=== PATIENT | female | born 1985 | race Caucasian/White ===

== ENCOUNTER 2023-10-07 22:45 | Emergency (ER) | payer BC, SELFPAY ==
--- NOTE | ~2023-10-07 | US_ITS ---
EXAMINATION: US pelvic complete w TV DATE: 10/08/2023 03:40 INDICATION: Right ovarian cyst. Low abdominal pain. TECHNIQUE: Multiple transabdominal and transvaginal sonographic images of the pelvis were obtained. COMPARISON: CT abdomen and pelvis 10/08/2023 FINDINGS: TRANSABDOMINAL ULTRASOUND: The uterus measures 9.9 x 5.0 x 5.4 cm. There is no free fluid in the pelvis. TRANSVAGINAL ULTRASOUND: The endometrial complex measures 8 mm in thickness. There are nabothian cysts in the cervix. The righ t ovary measures 11.8 x 7.3 x 10.7 cm. There is 11.8 cm cyst in right ovary. The left ovary measures 2.6 x 2.1 x 2.6 cm. There is vascular flow in the ovaries. IMPRESSION: 1. 11.8 cm cyst in right ovary, likely benign. Consider MRI or surgical evaluation. Reviewed, dictated and finalized at location A. IMPRESSION: 1. 11.8 cm cyst in right ovary, likely benign. Consider MRI or surgical evaluat ion.
--- NOTE | ~2023-10-07 | CT_ITS ---
EXAMINATION: CT abdomen pelvis w con DATE: 10/08/2023 01:13 INDICATION: Low abdominal pain. Nausea, vomiting, and diarrhea. TECHNIQUE: Computed tomography (CT) of the abdomen and pelvis was performed with 100 mL Omnipaque 350 intravenous contrast. Automated exposure control and iterative reconstruction technique were employe d. The dose-length product was 606.06 mGy-cm. COMPARISON: CT abdomen and pelvis 10/04/2018 FINDINGS: The visualized portions of the lung bases are clear without pneumonia or pleural effusion. The heart size is normal. No pericardial effusion. There are changes of gastric sleeve procedure. The re is diffuse hepatic steatosis. The gallbladder is normal. 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 The pancreas, adrenal glands, and kidneys are normal. There is a 12.5 cm cyst of the right ovary. There are changes of appendectomy. There are no pathologically enlarged lymph nodes. There is no free intraperitoneal fluid. There is mild thoracic and lumbar spondylosis. IMPRESSION: 1. 12.5 cm cyst in the right ovary, likely benign. Consider MRI or surgical evaluation. 2. 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 3. Diffuse hepatic steatosis. Reviewed, dictated and finalized at location A. IMPRESSION: 1. 12.5 cm cyst in the right ovary, likely benign. Consider MRI or surgical leona luation. 2. 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 3. Diffuse hepatic steatosis.
[2023-10-07 22:47] VITALS: BP 112/69; PULSE 104; RESP 16; TEMP 36.4; O2SAT 100
[2023-10-07 23:47] LABS: Basophils Percent Auto 0.3 % (0.2-1.2); Eosinophils Absolute Auto 0.1 K/mm3 (0-0.3); Eosinophils Percent Auto 0.4 % (0-4.4); Hematocrit 41.2 % (37.0-47.0); Hemoglobin 13.7 g/dL (12.0-15.0); Immature Granulocyte Absolute 0.03 K/mm3 (0.00-0.031); Immature Granulocyte Percent A 0.3 % (0-0.5); Lymphocytes Absolute Auto 1.91 K/mm3 (0.9-3.2); Lymphocytes Percent Auto 16.6 % (18.3-44.2); Mean Corpuscular HGB Conc 33.3 g/dl (32-36); Mean Corpuscular Volume 87.3 fl (80-100); Mean Platelet Volume 11.9 fl (7.4-10.4); Monocytes Absolute Auto 0.2 K/mm3 (0.1-0.6); Monocytes Percent Auto 1.7 % (2.6-8.5); Neutrophils Absolute Auto 9.3 K/mm3 (1.3-6.7); Neutrophils Percent Auto 80.7 % (45.5-73.1); Platelet Count Result 189 k/mm3 (150-375); Red Blood Count 4.72 M/mm3 (4.2-5.4); White Blood Count 11.5 K/mm3 (4.5-10.0)
[2023-10-08 00:02] LABS: Alanine Aminotransferase 28 U/L (6-35); Albumin Level 3.6 g/dL (3.5-5.1); Alkaline Phosphatase 61 U/L (38-126); Anion Gap 6 mmol/L (4-12); Aspartate Amino Transferase 31 U/L (14-36); Bilirubin,Total 0.5 mg/dL (0.2-1.3); Blood Urea Nitrogen 14 mg/dL (7-17); Calcium 8.8 mg/dL (8.4-10.2); Carbon Dioxide 24 mmol/L (22-30); Chloride 107 mmol/L (98-107); Estimated CRCL calculation 97 ml/min; Estimated Glomerular Filt Rate > 60; Glucose 163 mg/dL (65-110); Lipase 153 U/L (23-300); Potassium 3.2 mmol/L (3.4-5.0); Sodium 137 mmol/L (137-145)
[2023-10-08 00:09] VITALS: PULSE 92; RESP 19; O2SAT 100
[2023-10-08 00:46] LABS: Bacteria Urine 1+ /hpf; Calcium Oxalate Crystals Urine Present /hpf; Mucus Urine Present /lpf; Need Manual Microscopic Reviewed; Squamous Epithelial Cell Urine Moderate /hpf (Few); WBC Urine 21-50 /hpf (0-3)
[2023-10-08 00:48] LABS: Appearance Urine Clear (Clear); Color Urine Yellow (Yellow); Glucose Urine UA Negative (Negative); Protein Urine Trace mg/dL (Negative); Specific Grav Ur >= 1.030 (1.001-1.035); pH Urine 5.5 (5.0-9.0)
[2023-10-08 00:49] LABS: Bilirubin Urine 1+ (Negative); Blood Urine Trace-intact (Negative); Ketones Urine 2+ mg/dL (Negative); Leukocyte Esterase Ur Negative LEU/UL (Negative); Nitrate Urine Negative (Negative); Urobilinogen Urine 0.2 mg/dL (<2.0)
[2023-10-08] MEDS: ONDANSETRON INJ 4 MG/2 ML VIAL IV PUSH (00:49)
[2023-10-08] MEDS: SODIUM CHLORIDE 0.9% IV 1,000 ML 999 ML IV CONT (00:49)
[2023-10-08] MEDS: MORPHINE SULFATE (*CRX) 4 MG/ML INJ IV PUSH (00:49)
[2023-10-08 00:50] LABS: Add Urine Microscopic? YES
[2023-10-08 00:55] LABS: Magnesium 1.8 mg/dL (1.6-2.3)
--- NOTE | 2023-10-08 01:01 | ED.ABDPAIN ---
HPI - Abdominal Pain General Chief Complaint: Abdominal Pain <MARIAJOSE Dupont Last Filed: 10/08/23 02:27> Stated Complaint: abd pain, n/v after gastric sleeve 4 weeks ago <Britany Richards PA-C - Last Filed: 10/08/23 02:27> Time Seen by Provider: 10/07/23 23:41 <MARIAJOSE Dupont Last Filed: 10/08/23 02:27> Source: patient <MARIAJOSE Dupont Last Filed: 10/08/23 02:27> Mode of arrival: ambulatory <MARIAJOSE Dupont Last Filed: 10/08/23 02:27> Limitations: no limitations <MARIAJOSE Dupont Last Filed: 10/08/23 02:27> History of Present Illness HPI narrative: Patient is a 37 y/o female who presents the ED with report of abdominal pain. Patient reports she developed pain around 5:00 p.m. today diffusely throughout her abdomen. Pain was mild at 1st, but has continued to worsen. Described as a cramping pain. She does also report nausea, vomiting, a few episodes of diarrhea. She did eat a few bites of a salad prior to when symptoms began. Has not taken anything for pain. Reports chills and lightheadedness. Denies rectal bleeding, melena, fevers. Patient reports hx of gastric sleeve surgery [address] Waters with [facility]. Denies any complications r/t surgery. <Britany Richards PA-C - Last Filed: 10/08/23 02:27> Related Data Allergies/Adverse Reactions: Allergies Allergy/AdvReac Type Severity Reaction Status Date / Time codeine AdvReac Mild Nausea and Verified 10/07/23 23:18 Vomiting <MARIAJOSE Dupont Last Filed: 10/08/23 02:27> Review of Systems Review of Systems: CONSTITUTIONAL: Denies fever, chills, or sweats. GASTROINTESTINAL: see HPI. GENITOURINARY: Denies dysuria or hematuria. NEUROLOGIC: Reports lightheadedness. Denies headache, dizziness, numbness, or weakness. <Britany Richards PA-C - Last Filed: 10/08/23 02:27> All systems reviewed & are unremarkable except as noted in HPI and below <Britany Richards PA-C - Last Filed: 10/08/23 02:27> PMFSH Family History Family History: Family History Other Diabetes mellitus Family history of cardiovascular disease <Britany Richards PA-C - Last Filed: 10/08/23 02:27> Social History Social History: Social History Smoking status: Never smoker Alcohol intake: current <Britany Richards PA-C - Last Filed: 10/08/23 02:27> Exam Narrative: GENERAL: Well appearing, obese with BMI of 31.8, non-toxic, in no acute distress. HEAD: Normocephalic, atraumatic. RESPIRATORY: Airway patent, respirations nonlabored. Clear to auscultation bilaterally, no rales, rhonchi, wheezing. CARDIOVASCULAR: Borderline tachycardic with regular rhythm without murmurs, rubs, or gallops. ABDOMINAL: Soft, diffuse tenderness throughout lower abdomen, nondistended. Normoactive BS. MUSCULOSKELETAL: Moves all extremities. No gross deformities. SKIN: Warm, dry, normal color. NEURO: A&O X3. Speech clear. PSYCHIATRIC: Appropriate mood and affect. Normal interaction. <Britany Richards PA-C - Last Filed: 10/08/23 02:27> Course TECHNICAL ADJUSTER/PA Physician Supervision For this patient encounter, I reviewed the TECHNICAL ADJUSTER or PA documentation, treatment plan, and medical decision making and had [id number] time with this patient. I performed all aspects of the MDM as documented. <Grabiel Mcpherson MD - Last Filed: 10/08/23 03:58> Vital Signs Vital signs: Vital Signs Temperature 97.5 F L 10/07/23 22:47 Pulse Rate 104 H 10/07/23 22:47 Respiratory Rate 16 10/07/23 22:47 Blood Pressure 112/69 10/07/23 22:47 Pulse Oximetry 100 10/07/23 22:47 Oxygen Delivery Room Air 10/07/23 22:47 Temperature 97.5 F L 10/07/23 22:47 Pulse Rate 77 10/08/23 02:44 Respiratory Rate 20 10/08/23 02:44 Blood
[2023-10-08 01:15] VITALS: BP 125/68; PULSE 83; RESP 19; O2SAT 99
[2023-10-08 02:44] VITALS: BP 115/72; PULSE 77; RESP 20; O2SAT 97
[2023-10-08 04:03] VITALS: BP 108/59; PULSE 76; RESP 16; O2SAT 97
== END 2023-10-08 04:03 | disposition home or self-care (01) ==
PROVIDERS: Physician Assistant; Emergency Provider Emergency Medicine
DX: R10.30 Lower abdominal pain, unspecified (principal); R11.2 Nausea with vomiting, unspecified; Z98.84 Bariatric surgery status; N83.201 Unspecified ovarian cyst, right side
CPT/HCPCS: 36415; 74177; 76830; 76856; 80053; 81001; 81025; 83690; 83735; 85025; 87086; 87088; 96361; 96374; 96375; 99284; J2270; J2405; J7030; Q9967

== ENCOUNTER 2025-01-09 06:05 | Emergency (ER) | payer SELFPAY ==
[2025-01-09 06:06] VITALS: BP 131/84; PULSE 73; RESP 20; O2SAT 100
--- NOTE | 2025-01-09 06:15 | PC.NURSE ---
PT MOANING IN PAIN. AWAITING ROOM ASSIGNMENT. CHARGE NURSE AWARE.
--- NOTE | 2025-01-09 06:45 | PC.NURSE ---
PT STILL MOANING IN PAIN. AWAITING ROOM ASSIGNMENT. CHARGE NURSE AWARE.
--- NOTE | 2025-01-09 07:04 | PC.NURSE ---
PT GOT UP FROM [facility] AND WALKED OUT OF DEPARTMENT WITH A STEADY GAIT WITHOUT SAYING ANYTHING TO THIS RN.
== END 2025-01-09 08:23 | disposition left against medical advice (07) ==
DX: R10.30 Lower abdominal pain, unspecified (principal)
CPT/HCPCS: 99199

== ENCOUNTER 2025-02-14 06:59 | Emergency (ER) | payer OTHER, SELFPAY ==
--- NOTE | ~2025-02-14 | CT_ITS ---
Non-contrast CT scan of the Abdomen and Pelvis Clinical indication: Kidney stone Technique: 2.5 mm axial scans were obtained through the abdomen and pelvis without intravenous or or al contrast. Dose reduction technique was used on this scan by utilizing automated exposure control a nd iterative reconstruction technique. The dose-length product (DLP) was 407.30 mGy-cm. Findings: Images through the lung bases reveal no abnormalities. There is a 5 mm right UVJ stone, with mild to moderate right hydroureteronephrosis. No left renal or left ureteral stone. No left hydronephrosis. The liver, spleen, pancreas, gallbladder, and adrenals appear normal. There is no aortic aneurysm. There is no evidence of bowel obstruction. Images through the pelvis were performed. There is no evidence of ascites or lymphadenopathy. Urinary bladder unremarkable. IUD in place. No pelvic mass seen. Impression: 5 mm right UVJ stone with mild to moderate right hydroureteronephrosis. Reviewed, dictated and finalized at [facility]. Impression: 5 mm right UVJ stone with mild to moderate right hydroureteronephrosis.
--- OUTSIDE RECORDS SUMMARY | 2025-02-14 07:01 | XMS_ITS | Encounter Summary ---
Author Organization [facility] Address [address] [place] [address] Phone Care Team Providers Care Machining Technician Name Role Phone Harish Lofton APRN, CNP Primary Care Pr ovider Julius Yadav MD Unavailable Esau lemons Reason for Visit * Reason Comments Medication Refill Encounter Details Date Type Department Care Team (Late st Contact Info) Description 12/15/2022 Refill [facility] - [facility] Medicine [facility] [address] [place] [id number] Harish Lofton APRN, TEN [address] [address] Medication Refill Social History Tobacco Use Types Packs/Day Years Used Date Smoking Tobacco: Never Smokeless Tobacco: Never Alcohol Use Standard Drinks/Week Comments No 0 (1 standard drink = 0.6 oz pur e alcohol) PHQ-2 Answer Date Recorded Total Score - Questions 1-9 0 08/14 Education Answer Date Recorded What is the highest level of school you have completed or the highest degree you have received? Some college, no degree 08/29/2022 Comments Unknown Sex and Gender Information Value Date Recorded Sex Assigned at Not on file Legal Sex Female 8:31 AM INTERVENTIONAL TECH Gender Identity Not on file Sexual Orientation Not on file documented as of this encounter Miscellaneous Notes * Telephone Encounter - Hiral Wallis RN - 12/16/2022 3:06 PM CDT Name from pharmacy: ESCITALOPRAM 20MG TABLETS Will file in chart as: escitalopram (LEXAPRO) 20 MG Tablet The original prescription was discontinued on 10/14/2022 by Harish Lofton APRN, CNP documented in this encounter Plan of Treatment Upcoming Encounters Date Type Department Care Team (Late st Contact Info) Description 02/14/2025 1:00 PM CDT [facility] Visit [facility] - [facility] [address] [place] [address] Harish Lofton APRN, CNP [address] [address] documented as of this encounter Visit Diagnoses Diagnosis Anxiety Anxiety state, unspecified documented in this encounter Additional Health Concerns Assessment Noted Time PHQ-9 Depression Total Score: 0 08/30/19 23 3:00 PM INTERVENTIONAL TECH documented as of this encounter Care Teams Machining Technician Relationship Specialty Start Date End Date Harish Lofton APRN, CNP #[address] [address] PCP - General Advanced Practice Nurse 07/12/22 Julius Yadav MD [address] [address] Consulting Physician Cardiovascular Disease - Cardiology 08/12/22 06/23/24 documented as of this encounter
--- OUTSIDE RECORDS SUMMARY | 2025-02-14 07:01 | XMS_ITS | Encounter Summary ---
Author Organization [facility] Address [address] [place] [address] Care Team Providers Care Sub Master Name Role Phone Unavailable Primary Care Provider Unavailabl e Encounter Details Date Type Department Care Team (Late st Contact Info) Description 08/19/2023 Abstract [facility] [address] [phone] Blaine Waters MD [address] [place] [address] Social History Tobacco Use Types Packs/Day Years Used Date Smoking Tobacco: Never Smokeless Tobacco: Never Alcohol Use Standard Drinks/Week Comments Yes 0 (1 standard drink = 0.6 oz pur e alcohol) RARE Comments No Sex and Gender Information Value Date Recorded Sex Assigned at Not on file Legal Sex Female 9:31 AM CDT Gender Identity Not on file Sexual Orientation Not on file documented as of this encounter Plan of Treatment Not on file documented as of this encounter Visit Diagnoses Not on filedocumented in this encounter
--- OUTSIDE RECORDS SUMMARY | 2025-02-14 07:01 | XMS_ITS | Encounter Summary ---
Author Organization [facility] Address [address] [place] [address] Phone Care Team Providers Care Plasterer Foreman Name Role Phone Harish Lofton APRN, CNP Primary Care Pr ovider Julius Yadav MD Unavailable Esau lemons Reason for Visit * Reason Comments Medication Refill Encounter Details Date Type Department Care Team (Late st Contact Info) Description 11/08/2022 Refill [facility] - [facility] Medicine [facility] [address] [place] [phone] Harish Lofton APRN, TEN #[address] [address] Medication Refill Social History Tobacco Use Types [...] on file Legal Sex Female 8:31 AM VIBRATOR OPERATOR Gender Identity Not on file Sexual Orientation Not on file COVID-19 Exposure Response Date Recorded In the last 10 days, have yo u been in contact with someone who was confirmed or suspected to have Coronavirus/COVID-19? No / Unsure 11/07/2022 2:31 PM CDT documented as of this encounter Miscellaneous Notes * Telephone Encounter - Hiral Wallis RN - 11/08/2022 1:08 PM CDT Name from pharmacy: LORAZEPAM 0.5MG TABLETS Will file in chart as: LORazepam (ATIVAN) 0.5 MG Tablet The original prescription was reordered on 11/08/2022 by Harish Lofton APRN, TEN. documented in this encounter Plan of Treatment Upcoming Encounters Date Type Department Care Team (Late st Contact Info) Description 02/14/2025 1:00 PM CDT [facility] Visit [facility] - [facility] [address] [place] [address] Harish Lofton APRN, TEN #[address] [address] documented as of this encounter Visit Diagnoses Diagnosis Anxiety Anxiety state, unspecified documented in this encounter Additional Health Concerns Assessment Noted Time PHQ-9 Depression Total Score: 0 08/30/19 23 3:00 PM VIBRATOR OPERATOR documented as of this encounter Care Teams Plasterer Foreman Relationship Specialty Start Date End Date Harish Lofton APRN, TEN #[address] [address] PCP - General Advanced Practice Nurse 07/12/22 Julius Yadav MD #[address] [address] Consulting Physician Cardiovascular Disease - Cardiology 08/12/22 06/23/24 documented as of this encounter
--- OUTSIDE RECORDS SUMMARY | 2025-02-14 07:01 | XMS_ITS | Clinical Summary ---
Author Organization [facility] Address [address] [place] [address] Phone Care Team Providers Care Drapery Estimator Name Role Phone Harish Lofton APRN, MIRROR SILVERER Primary Care Pr ovider Allergies Active Allergy Reactions Criticality Noted Date Comments Codeine Nausea Low 05/25/2019 Medications Alcohol Swabs (Alcohol Prep) 70 % PadsIndications :Type 2 diabetes mellitus with hyperglycemia, without long-term current use of insulin (HCC) Use to test blood sugar once daily as directed. E11.65. 100 Each 11 3 Active LORazepam (ATIVAN) 0.5 MG TabletIndicatio ns:Anxiety Take 1 Tablet by mouth every 8 hours as needed for Anxiety. 15 Tablet 4 Active Blood Glucose Monitoring Suppl DeviceIndicatio ns:Type 2 diabetes mellitus with hyperglycemia, without long-term current use of insulin (HCC) Diagnosis: Diabetes type 2 Blood testing frequency: once a day 1 Each 4 Active Glucose Blood StripIndication s:Type 2 diabetes mellitus with hyperglycemia, without long-term current use of insulin (HCC) Use to test blood sugar once daily as directed. E11.65. 100 Strip 3 4 Active Lancets MiscIndications :Type 2 diabetes mellitus with hyperglycemia, without long-term current use of insulin (HCC) Use to test blood sugar once daily as directed. E11.65. 100 Lancet 3 4 Active semaglutide, 2 MG/DOSE, (Ozempic, 2 MG/DOSE,) 8 MG/3ML Solution Pen-injector 2 mg by Subcutaneous route once a week. 9 mL 3 5 Active Active Problems Problem Noted Date Diagnosed Date Primary hypertension 10/14/2022 Anxiety 10/14/2022 Type 2 diabetes mellitus 08/30/2022 Resolved Problems Problem Noted Date Diagnosed Date Resolved Date Prediabetes 07/16/2022 08/30/2022 Encounters Date Type Department Care Team Description 12/08/2024 Refill [facility] [address] [place] [address] Harish Lofton, STRAW HAT BRIM RAISER OPERATOR, MIRROR SILVERER Medication Refill from Last 3 Months Immunizations Immunization Administration Dates Next Due Influenza,Split Virus,Trivalent,Injectable,PF MMR Vaccine 12/02/2018 Pneumococcal conjugate PCV20 , polysaccharide [id number] conjugate, adjuvant, PF 10/22/2024 TDAP Vaccine 12/02/2018 Family History Medical History Relation Name Comments No Known Problems Brother No Known Problems Father No Known Problems Mother No Known Problems Sister 1 No Known Problems Sister 2 Relation Name Status Comments Brother Alive Father Alive Mother Alive Sister 1 Alive Sister 2 Alive Social History Tobacco Use Types Packs/Day Years Used Date Smoking Tobacco: Never Smokeless Tobacco: Never Tobacco Cessation:Counseling Given: Yes Alcohol Use Standard Drinks/Week Comments No 0 (1 standard drink = 0.6 oz pur e alcohol) [facility] Utilities Answer Date Recorded In the past 12 months has [employer], [employer], oil, or water [employer] threatened to shut off services in your home? No 10/21/2024 Social Connection and Isolation Panel Answer Date Recorded In a typical week, how many times do you talk on the phone with family, friends, or neighbors? Three times a week 10/21/2024 How often do you get togethe r with friends or relatives? Twice a week 10/21/2024 How often do you attend [facility] or restorationism services? Never 10/21/2024 Do you belong to any clubs o r organizations such as muslim groups, unions, fraternal or athletic groups, or school groups? No 10/21/2024 How often do you attend meet ings of the clubs or organizations you belong to? Never 10/21/2024 Are you , , di vorced, , never , or living with a partner? 10/21/2024 AUDIT-C Answer Date Recorded Q1: How often do you have a drink containing alcohol? Never 10/21/2024 Q2: How many drinks containi ng alcohol do you have on a typical day when you are drinking? Patient does not drink Q3: How often do you have si x or more drinks on one occasion? Never 10/21/2024 Overall Financial Resource Strain (CARDIA) Answe r Date Recorded How hard is it for you to pa y for the very basics like food, housing, medical care, and heating? Hard 10/21/2024 PHQ-2 Answer Date Recorded Total Score - Questions 1-9 0 10/12 [facility] - Occupational Stress Questionnaire Answer Date Recorded Do you feel stress - tense, restless, nervous, or anxious, or unable to sleep at night because your mind is troubled all the time - these days? Rather much 10/21/2024 Exercise Vital Sign Answer Date Recorde d On average, how many days pe r week do you engage in moderate to strenuous exercise (like a brisk walk)? 3 days 10/21/2024 On average, how many minutes do you engage in exercise at this level? 30 min 10/21/2024 Hunger Vital Sign Answer Date Recorded Within the past 12 months, y ou worried that your food would run out before you got the money to buy more. Sometimes true Within the past 12 months, t he food you bought just didn't last and you didn't have money to get more. Sometimes true 04/2025 PRAPARE - Transportation Answer Date Re corded In the past 12 months, has l ack of transportation kept you from medical appointments or from getting medications? No 10/12 In the past 12 months, has l ack of transportation kept you from meetings, work, or from getting things needed for daily living? No 10/21/2024 Housing Stability Vital Sign Answer Gurpreet e Recorded In the last 12 months, was t here a time when you were not able to pay the mortgage or rent on time? Yes 10/21/2024 In the past 12 months, how m any times have you moved where you were living? 0 10/21/2024 At any time in the past 12 m [facility], were you homeless or living in a correction (including now)? No 10/21/2024 Education Answer Date Recorded What is the highest level of school you have completed or the highest degree you have received? Some college, no degree 08/29/2022 Comments Unknown Sex and Gender Information Value Date Recorded Sex Assigned at Not on file Legal Sex Female 8:31 AM INFORMATION SYSTEMS SECURITY MANAGER Gender Identity Not on file Sexual Orientation Not on file Last Filed Vital Signs Vital Sign Reading Time Taken Comments Blood Pressure 108/62 10/22/2024 8:22 AM CDT Pulse 70 10/22/2024 8:22 AM CDT Temperature 36.3 C (97.3 F) 10/22/2024 8:22 AM CDT Respiratory Rate 14 10/22/2024 8:22 AM CDT Oxygen Saturation 99% 10/22/2024 8:22 AM CDT Inhaled Oxygen Concentration - - Weight 70.9 kg (156 lb 3.2 oz) 10/22/2024 8:22 A M CDT Height 160 cm (5' 3) 10/22/2024 8:22 AM CDT Body Mass Index 27.67 10/22/2024 8:22 AM CDT Plan of Treatment Upcoming Encounters Date Type Department Care Team (Late st Contact Info) Description 02/14/2025 1:00 PM CDT Office Visit [facility] - [facility] [place] [address] Harish Lofton, STRAW HAT BRIM RAISER OPERATOR, MIRROR SILVERER [address] [address] Health Maintenance Due Date Last Done Comments Diabetes: Eye Exam 1985 Diabetes: Foot Exam 1985 Hepatitis C Virus (HCV) Screening 1985 Hepatitis B Immunization (1 of 3 - 19+ 3-dose series) 2005 Pap Smear 10/17/2007 Human Papillomavirus (HPV) Immunization (1 - 3-dose SCDM series) 2013 SARS-COV-2 Immunization ( season) 2024 Influenza Immunization (#1) 2025 04/14/2024 Diabetes: Hemoglobin A1c 04/23/2025 025, 02/03/2024, 03/27/2023, Additional history exists Diabetes: Nephropathy Screening 10/22/2025 10/22/2024, 10/22/2024, 11/07/2022, Additional history exists Td Immunization Every 10 Years (Adults With 1 Tdap) 12/02/2028 12/02/2018 Cervical Cancer Screening (CCS) 12/08/2028 HPV/Cotest 12/08/2028 12/09/2023 Respiratory Syncytial Virus (RSV) Immunization (Adult) (1 - 1-dose 75+ series) 2061 DTaP/Tdap/Td Immunization Discontinued 12/02/2018 Pneumococcal Immunization Combined Completed 10/22/2024 Meningococcal Immunization (ACWY) Aged Out No longer eligible based on patient's age to complete this topic Rotavirus Immunization Aged Out No lo nger eligible based on patient's age to complete this topic Procedures Procedure Name Priority Date/Time Associated Diagnosis Comments CMP (COMPREHENSIVE METABOLIC PANEL) Routine 10/22/2024 8:56 AM CDT Type 2 diabetes mellitus with hyperglycemia, without long-term current use of insulin (HCC) HEMOGLOBIN A1C W/ ESTIMATED GLUCOSE Routine 10/22/2024 8:56 AM CDT Type 2 diabetes mellitus with hyperglycemia, without long-term current use of insulin (HCC) from Last 3 Months or Most Recently Relevant to Health Maintenance Results * HEMOGLOBIN A1C W/ ESTIMATED GLUCOSE (10/22/2024 8:56 AM CDT) HGB-A1C 5.6 4.0 - 6.0 % 10/22/2024 10:48 AM CDT [facility] Est Average Glucose 114.0 mg/dL 10/22/2024 10:48 AM CDT [facility] Blood Venipuncture / Unknown 10/22/2024 8:56 AM CDT 10/22/2024 10:27 AM CDT Narrative [facility] - 10/22/2024 10:48 AM CDT HEMOGLOBIN A1C: DIABETIC PATIENTS: WELL-CONTROLLED: 6.2 - 7.0 INTERMEDIATE WELL-CONTROLLED: 7.0 - 9.0 POORLY-CONTROLLED: >9.0 Specimens containing greater than 5% of Hemoglobin F may result in lower than expected % HbA1C results. us Harish Lofton APRN, CNP CHEMISTRY ORDERA BLES Final Result [facility] [address] [place] [address] * (ABNORMAL) CMP (COMPREHENSIVE METABOLIC PANEL) (10/22/2024 8:56 AM CDT) SODIUM 140 136 - 145 mmol/L 10/22/2024 10:54 AM CDT [facility] POTASSIUM 3.8 3.5 - 5.1 mmol/L 10/22/2024 10:54 AM CDT [facility] CHLORIDE 109(H) 98 - 107 mmol/L 10/22/2024 10:54 AM CDT [facility] CO2, VENOUS 24 22 - 30 mmol/L 10/22/2024 10:54 AM CDT [facility] ANION GAP 10.8 <18.0 mmol/L 10/22/2024 10:54 AM CDT [facility] GLUCOSE 82 70 - 99 mg/dL 10/22/2024 10:54 AM CDT [facility] BUN 11 5 - 18 mg/dL 10/22/2024 10:54 AM CDT [facility] CREATININE, BLOOD 0.74 0.60 - 1.00 mg/dL 10/22/2024 10:54 AM CDT [facility] BUN/CREATININE RATIO 15 12 - 20 ratio 10/22/2024 10:54 AM CDT [facility] TOTAL PROTEIN 7.2 6.0 - 8.0 g/dL 10/22/2024 10:54 AM CDT [facility] ALBUMIN 4.1 3.5 - 5.0 g/dL 10/22/2024 10:54 AM CDT [facility] A/G RATIO 1.3 1.0 - 2.2 10/22/2024 10:54 AM CDT [facility] CALCIUM 8.9 8.7 - 10.5 mg/dL 10/22/2024 10:54 AM CDT [facility] T BILI 0.5 0.2 - 1.2 mg/dL 10/22/2024 10:54 AM CDT [facility] SGOT (AST) 16 <43 U/L 10/22/2024 10:54 AM CDT [facility] SGPT (ALT) 9 <56 U/L 10/22/2024 10:54 AM CDT [facility] ALKALINE PHOSPHATASE 83 40 - 150 U/L 10/22/2024 10:54 AM CDT [facility] IS THE PATIENT REQUIRED TO BE FASTING? No 10/22/2024 10:54 AM CDT [facility] GFR, ESTIMATED >60 >=60 10/22/2024 10:54 AM CDT [facility] Comment: Creatinine Clearance is the preferred criteria for selecting drug dose adjustments in renally impaired patients. The GFR is provided as additional pertinent clinical information. GFR is reported in mL/min/1.73 sq m. Calculation based on the Chronic Kidney Disease Epidemiology Collaboration (CKD- EPI) equation refit without adjustment for race. GFR, EST. >60 >=60 025 10:54 AM CDT [facility] GFR, EST. NONAFRICAN >60 >=60 10/22/2024 10:54 AM T [facility] Blood Venipuncture / Unknown 10/22/2024 8:56 AM CDT 10/22/2024 10:26 AM CDT Harish Lofton STRAW HAT BRIM RAISER OPERATOR, MIRROR SILVERER CHEMISTRY ORDERA BLES Final Result [facility] [address] [place] [address] from Last 3 Months or Most Recently Relevant to Health Maintenance Insurance * Guarantor: BLAKE MONSON Account Type Relation to Patient Date of Phone Billing Address Personal/Family 1985 [address], [facility] [facility] on file Care Teams Drapery Estimator Relationship Specialty Start Date End Date Harish Lofton APRN, MIRROR SILVERER [address] [place] [address] PCP - General Advanced Practice Nurse 07/12/22
--- OUTSIDE RECORDS SUMMARY | 2025-02-14 07:01 | XMS_ITS | Encounter Summary ---
Author Organization [facility] Address [address] [place] [address] Phone Care Team Providers Care Profiling Machine Set Up Operator Tool Name Role Phone Harish Lofton APRN, CNP Primary Care Pr ovider Julius Yadav MD Unavailable Esau lemons Reason for Visit * Reason Comments Medication Refill Encounter Details Date Type Department Care Team (Late st Contact Info) Description 09/29/2022 Refill [facility] - Family Medicine [facility] [address] [place] [id number] Harish Lofton APRN, TEN [address] [address] Medication Refill Social History Tobacco Use Types [...] on file Legal Sex Female 8:31 AM INSURANCE CHECKER Gender Identity Not on file Sexual Orientation Not on file documented as of this encounter Plan of Treatment Upcoming Encounters Date Type Department Care Team (Late st Contact Info) Description 02/14/2025 1:00 PM CDT Office Visit [facility] - Family Medicine [facility] [address] [place] [address] Harish Lofton APRN, TEN #[address] [address] documented as of this encounter Visit Diagnoses Diagnosis Type 2 diabetes mellitus with hyperglycemia, without long-term current use of insulin (HCC) documented in this encounter Additional Health Concerns Assessment Noted Time PHQ-9 Depression Total Score: 0 08/30/19 3:00 PM INSURANCE CHECKER documented as of this encounter Care Teams Profiling Machine Set Up Operator Tool Relationship Specialty Start Date End Date Harish Lofton APRN, TEN [address] [address] PCP - General Advanced Practice Nurse 07/12/22 Julius Yadav MD [address] [address] Consulting Physician Cardiovascular Disease - Cardiology 08/12/22 06/23/24 documented as of this encounter
--- OUTSIDE RECORDS SUMMARY | 2025-02-14 07:01 | XMS_ITS | Clinical Summary ---
Author Organization [facility] Address [address] [facility] [place] [address] Care Team Providers Care Truck Rental Service Attendant Name Role Phone Unavailable Primary Care Provider Unavailabl e Source Comments [facility],non-owned Affiliates and Associated Physician Practices is amultiple site organization consisting of ambulatory clinics and hospital sitesin [place], [place], [place]. This disclosure is being madepursuant to the Care Everywhere program and may not contain all information available regarding this patient. Last updated 18.[facility] Allergies Active Allergy Reactions Criticality Noted Date Comments Codeine Nausea and/or Vomiting Low 02/01/2011 Medications * Be aware that medications may not be up to date on this document. Alwaysverify current medications with the patient. norgestimate-ethin yl estradiol (MONONESSA) 0.25-35 MG-MCG tablet 06/17/2017 Active Active Problems Problem Noted Date Diagnosed Date Other specified postprocedural states 08/14/2017 Hypertrophy of breast 08/08/2017 Social History Tobacco Use Types Packs/Day Years Used Date Smoking Tobacco: Former Cigarettes Q uit: 05/28/2017 Smokeless Tobacco: Never Alcohol Use Standard Drinks/Week Comments No 0 (1 standard drink = 0.6 oz pur e alcohol) Comments Unknown Sex and Gender Information Value Date Recorded Sex Assigned at Not on file Legal Sex Female 5:37 PM TURNING MACHINE OPERATOR Gender Identity Not on file Sexual Orientation Not on file Last Filed Vital Signs Vital Sign Reading Time Taken Comments Blood Pressure 112/73 08/20/2017 12:01 PM TURNING MACHINE OPERATOR Pulse 68 08/20/2017 12:01 PM TURNING MACHINE OPERATOR Temperature 37.3 C (99.1 F) 08/20/2017 12:01 PM TURNING MACHINE OPERATOR Respiratory Rate 18 08/09/2017 8:20 AM TURNING MACHINE OPERATOR Oxygen Saturation 98% 08/13/2017 10:56 AM TURNING MACHINE OPERATOR Inhaled Oxygen Concentration - - Weight 86.2 kg (190 lb) 08/20/2017 12:01 PM TURNING MACHINE OPERATOR Height 160 cm (5' 3) 08/20/2017 12:01 PM TURNING MACHINE OPERATOR Body Mass Index 33.66 08/20/2017 12:01 PM TURNING MACHINE OPERATOR Plan of Treatment Health Maintenance Due Date Last Done Comments HIV SCREENING 2001 HEPATITIS C SCREENING 10/11/2004 DTAP/TDAP/TD VACCINES (1 - Tdap) 2005 HEPATITIS B VACCINE (1 of 3 - 19+ 3-dose series) 2005 HPV VACCINE (1 - 3-dose SCDM series) 2013 COVID-19 VACCINE (1 - 2023-2 5 season) 2024 DEPRESSION SCREENING 07/14/2024 INFLUENZA VACCINE (#1) 2025 ZOSTER VACCINE (1 of 2) 2036 HIB VACCINE Aged Out No longer eligi ble based on patient's age to complete this topic MENINGOCOCCAL (Group B) VACC INE SHARED DECISION-MAKING Aged Out No longer eligibl e based on patient's age to complete this topic MENINGOCOCCAL GROUPS A/C/Y/W VACCINE Aged Out No longer eligible b ased on patient's age to complete this topic PNEUMOCOCCAL VACCINE Aged Out No long er eligible based on patient's age to complete this topic Insurance [facility]
--- OUTSIDE RECORDS SUMMARY | 2025-02-14 07:01 | XMS_ITS | Clinical Summary ---
Author Organization [facility] Address [address] [place] [address] Phone Care Team Providers Care Air Brush Decorator Name Role Phone Unavailable Primary Care Provider Unavailabl e Allergies Active Allergy Reactions Criticality Noted Date Comments Codeine Nausea and Vomiting Low 02/01/2011 Medications LORazepam 0.5 mg tablet Take 0.5 mg by mouth every 6 hours as needed. 12/05/2022 Active traMADoL (ULTRAM) 50 mg tabletIndicatio ns:Post-op pain Take 1 Tablet (50 mg) by mouth every 6 hours as needed for Pain. 28 Tablet 09/02/2023 11:18 AM CERTIFIED PROFESSIONAL ERGONOMIST 09/01/2023 Active ondansetron (ZOFRAN ODT) 4 mg Tablet, Rapid Dissolve Dissolve 1 tablet on top of tongue, then swallow with saliva every 6 hours as needed for Nausea/Vomiti ng. 28 Tablet 09/02/2023 11:18 AM CERTIFIED PROFESSIONAL ERGONOMIST 09/01/2023 Active Active Problems Problem Noted Date Diagnosed Date MAINE (generalized anxiety disorder) 09/01/2023 Diabetes mellitus 09/01/2023 Class 1 obesity due to exces s calories with serious comorbidity and body mass index (BMI) of 34.0 to 34.9 in adult 09/01/2023 Postoperative nausea and vomiting 09/01/2023 Postoperative pain 09/01/2023 General medical exam 09/01/2023 Immunizations Immunization Administration Dates Next Due (ADACEL/BOOSTRIX)(10 YR UP) TDAP VACCINE, 0.5ML, IM 12/02/2018 (M-M-R II/PRIORIX)(12 MO UP) MEASLES, MUMPS AND RUBELLA VIRUS VACCINE, 0.5 ML IM/SUBCUT 12/02/2018 Family History Medical History Relation Name Comments Cancer - Other Father Other Father No Known Problems Mother Relation Name Status Comments Father Alive Mother Alive Social History Tobacco Use Types Packs/Day Years Used Date Smoking Tobacco: Never Smokeless Tobacco: Never Tobacco Cessation:Counseling Given: Not Answered Alcohol Use Standard Drinks/Week Comments Yes 0 (1 standard drink = 0.6 oz pur e alcohol) RARE Comments No Sex and Gender Information Value Date Recorded Sex Assigned at Not on file Legal Sex Female 9:31 AM CDT Gender Identity Not on file Sexual Orientation Not on file Last Filed Vital Signs Vital Sign Reading Time Taken Comments Blood Pressure 130/78 09/02/2023 12:33 PM CERTIFIED PROFESSIONAL ERGONOMIST Pulse 60 09/02/2023 11:41 AM CERTIFIED PROFESSIONAL ERGONOMIST Temperature 36.6 C (97.9 F) 09/02/2023 11:41 AM CERTIFIED PROFESSIONAL ERGONOMIST Respiratory Rate 16 09/02/2023 11:41 AM CERTIFIED PROFESSIONAL ERGONOMIST Oxygen Saturation 99% 09/02/2023 12:21 PM CERTIFIED PROFESSIONAL ERGONOMIST Inhaled Oxygen Concentration - - Weight 88.5 kg (195 lb 3.2 oz) 09/01/2023 11:14 AM CERTIFIED PROFESSIONAL ERGONOMIST Height 160 cm (5' 3) 09/01/2023 11:14 AM CERTIFIED PROFESSIONAL ERGONOMIST Body Mass Index 34.58 09/01/2023 11:14 AM CERTIFIED PROFESSIONAL ERGONOMIST Plan of Treatment Health Maintenance Due Date Last Done Comments HPV VACCINES (1 - 3-dose series) 2001 DIABETES ANNUAL FOOT EXAM 2004 DIABETES ANNUAL RETINAL EXAM 2004 DIABETES MICROALBUMIN ANNUAL SCREEN 2004 LDL CHOLESTEROL ANNUAL 2004 HEPATITIS B VACCINES (1 of 3 - 19+ 3-dose series) 2005 HPV/Cotest (21-29) 10/17/2007 CERVICAL CANCER SCREENING 2016 HPV/Cotest (30-65) 2016 PAP SMEAR 2016 DIABETES HBA1C Q 6 MONTHS 11/12/2023 05/14/2023, INFLUENZA VACCINE (#1) 2025 DTAP/TDAP/TD VACCINES (2 - Td or Tdap) 12/02/2028 Medical Devices Implanted Type Area Architecture Instructor Device Identifier Shelf Expiration Date Model / Serial / Lot Seamguard Endogia 60 Prpl [id number] - [id number] Implanted:Qty : 1 on 09/01/2023 by Blaine Waters MD at [facility] N/A: [employer] [id number] 04/05/2026 12BSGTRI 60P / / [id number] Seamguard Endogia 60 Blk [id number] - [id number] Implanted:Qty : 1 on 09/01/2023 by Blaine Waters MD at [facility] N/A: Stomach [employer] [id number] 01/05/2026 12BSGTRI 60B / / [id number] Seamguard Endogia 60 Blk [id number] - [id number] Implanted:Qty : 1 on 09/01/2023 by Blaine Waters MD at [facility] N/A: Stomach [employer] [id number] 01/05/2026 12BSGTRI 60B / / [id number] Seamguard Endogia 60 Prpl [id number] - [id number] Implanted:Qty : 1 on 09/01/2023 by Blaine Waters MD at [facility] N/A: Stomach [employer] [id number] 04/05/2026 12BSGTRI 60P / / [id number] Seamguard Endogia 60 Prpl [id number] - [id number] Implanted:Qty : 1 on 09/01/2023 by Blaine Waters MD at [facility] N/A: Stomach [employer] [id number] 03/17/2026 12BSGTRI 60P / / [id number] Artificial Cercical Disc And Hardware Cervical Spine Insurance [facility] [place] [place] [address] RX [employer] (INTERNAL) [facility] Internal Plans Advance Directives For more information, please contact: [phone] * Full Code (Latest Code Status on File) Date Activated Date Inactivated Comments 09/01/2023 7:33 AM 09/02/2023 4:51 PM * Full Code Date Activated Date Inactivated Comments 09/01/2023 5:47 AM 09/01/2023 7:32 AM
[2025-02-14 07:02] VITALS: BP 108/91; PULSE 69; RESP 18; TEMP 36.8; O2SAT 99
--- OUTSIDE RECORDS SUMMARY | 2025-02-14 07:02 | XMS_ITS | Referral Summary ---
Author Organization [facility] Address [address] [place] [address] Phone Care Team Providers Care Infirmary Attendant Name Role Phone Harish Lofton NP Unavailable [phone] Harish Lofton NP Primary Care Provider Allergies Active Allergy Reactions Criticality Noted Date Comments Codeine Nausea And Vomiting,Nausea only Low 01/12 Medications alcohol swabs (Alcohol Prep Pads) pads, medicated Use to test blood sugar once daily as directed. E11.65. 3 Active True Metrix Glucose Test Strip strip USE DIRECTED TO TEST DAILY 4 Active LORazepam (ATIVAN) 0.5 mg tabletIndications:a nxiety Take 1 tablet (0.5 mg total) by mouth every 8 (eight) hours as needed for anxiety 3 Active Ozempic 2 mg/dose (8 mg/3 mL) pen injector injectionIndication s:type 2 diabetes mellitus Inject 2 mg under the skin every 7 days Mondays 4 Active cyanocobalamin, vitamin B-12, (VITAMIN B-12 ORAL)Indications:Cabezas pplement Take 2 tablets by mouth every morning Active multivitamin with iron tabletIndications:V itamin Deficiency Prevention Take 1 tablet by mouth every morning Active acetaminophen (TYLENOL) 500 mg tablet Take 2 tablets (1,000 mg total) by mouth every 6 (six) hours as needed for pain 60 tablet 4 Active gabapentin (NEURONTIN) 300 mg capsule Take 1 capsule (300 mg total) by mouth 3 (three) times a day 90 capsule 11 4 Active oxyCODONE (ROXICODONE) 5 mg immediate release tabletIndications:P ain Take 1 tablet (5 mg total) by mouth every 4 (four) hours as needed for pain 15 tablet 4 Active ondansetron ODT (ZOFRAN-ODT) 4 mg disintegrating tablet Take 1 tablet (4 mg total) by mouth every 8 (eight) hours as needed for nausea or vomiting 20 tablet 4 Active polyethylene glycol (MIRALAX) 17 gram/dose bulk powder Take 17 g by mouth daily 510 g 4 Active Active Problems Problem Noted Date Diagnosed Date Acneiform eruption 12/09/2023 Gestational diabetes mellitus 12/09/2023 Unintended weight gain 12/09/2023 Cyst of right ovary 12/09/2023 Dysmenorrhea 12/09/2023 Abnormal uterine bleeding (AUB) 12/09/2023 Disorder of ovary 10/08/2023 MAINE (generalized anxiety disorder) 09/01/2023 Postoperative pain 09/01/2023 Anxiety 10/14/2022 Primary hypertension 10/14/2022 Type 2 diabetes mellitus 08/30/2022 Hypertrophy of breast 08/08/2017 Immunizations Immunization Administration Dates Next Due MMR 12/02/2018 Tdap 12/02/2018 Social History Tobacco Use Types Packs/Day Years Used Date Smoking Tobacco: Never Passive Smoke Exposure: Never Smokeless Tobacco: Never Tobacco Cessation:Counseling Given: Not Answered AUDIT-C Answer Date Recorded Q1: How often do you have a drink containing alc ohol? Monthly or less 02/13/2024 Q2: How many drinks containi ng alcohol do you have on a typical day when you are drinking? 1 or 2 02/13/2024 Q3: How often do you have si x or more drinks on one occasion? Never 02/13/2024 Personal Safety Answer Date Recorded Have you ever been in or are you currently in a harmful physical or emotional relationship or is someone making you feel afraid or unsafe? Denies 02/13/2024 Comments No Sex and Gender Information Value Date Recorded Sex Assigned at Not on file Legal Sex Female 6:17 PM ASSISTANT ATTORNEY GENERAL Gender Identity Not on file Sexual Orientation Not on file Last Filed Vital Signs Vital Sign Reading Time Taken Comments Blood Pressure 110/68 02/13/2024 12:50 PM CDT Pulse 101 02/13/2024 1:00 PM CDT Temperature 36.4 C (97.5 F) 02/13/2024 1:00 PM CDT Respiratory Rate 17 02/13/2024 1:00 PM CDT Oxygen Saturation 94% 02/13/2024 1:00 PM CDT Inhaled Oxygen Concentration - - Weight 75.6 kg (166 lb 10.7 oz) 02/03/2024 4:30 PM CDT Height 160 cm (5' 3) 02/03/2024 4:30 PM CDT Body Mass Index 29.52 02/03/2024 4:30 PM CDT Plan of Treatment Not on file Procedures Procedure Name Priority Date/Time Associated Diagnosis Comments EGFR Routine 02/03/2024 5:18 PM CDT Preoperative testing POCT HEMOGLOBIN A1C Routine 02/03/2024 5 :01 PM CDT HIGH RISK HPV DNA DETECTION WITH GENOTYPING Routine 12/09/2023 9:35 AM CDT Cyst of ovary, unspecified laterality from Last 3 Months or Most Recently Relevant to Health Maintenance Results * eGFR (02/03/2024 5:18 PM CDT) eGFR >90 >=60 mL/min/1. 73 m2 Comment: Interpretive Data Reference Interval Normal >/= 90 mL/min/1.73m2 Mildly decreased* 60 - 89 mL/min/1.73m2 Mildly to moderately decreased 45 - 59 mL/min/1.73m2 Moderately to severely decreased 30 - 44 mL/min/1.73m2 Severely decreased 15 - 29 mL/min/1.73m2 Kidney Failure < 15 mL/min/1.73m2 *Relative to young adult level Estimated glomerular filtration rate is determined by the 2020 CKD-EPI equation recommended by the National Kidney Foundation (A Unifying Approach to GFR Estimation: Recommendations of the NKF-ASK Task Force on Reassessing the Inclusion of Race in Diagnosing Kidney Disease, JASN 2020). The CKD-EPI equation should not be used for patients with unstable renal function and has not been validated in children and those over 70. Current interpretive data was last reviewed 2021. Blood 02/03/2024 5:18 PM CDT 02/03/2024 5:45 PM CDT Noelle Man NP LAB BLOOD ORDERABLES Fi nal Result Performing Organization Address City/[facility] Co de Phone Number [facility] [place] [address] * (ABNORMAL) POCT hemoglobin A1c (02/03/2024 5:01 PM CDT) Pathologist [facility] Hgb A1C, POC 5.8(H) 4.0 - 5.6 % Est Average Gluc POC 120 mg/dL [facility] Comment: The ADA recommends reporting an estimated Average Glucose (eAG) with all Hemoglobin A1c results using the equation derived from a study of 507 normal and diabetic adults. Minority populations were underrepresented and children were not included. (Diabetes Care 31:6120-3257, 2008). The eAG is not equivalent to a fasting glucose. Blood 02/03/2024 5:01 PM CDT 02/03/2024 5:01 PM CDT Zulma No MD POINT OF CARE TEST ORD ERABLES Final Result Performing Organization Address [facility] Co de Phone Number [facility] [place] [address] * High Risk HPV DNA Detection with Genotyping (Molecular component) (12/09/2023 9:35 AM CDT) Pathologist [facility] HPV HR 16 Not Detected Not Detected [facility] HPV HR 18 Not Detected Not Detected [facility] HPV HR Non 16/18 Not Detected Not Detected [facility] Comment: Interpretive Data Nucleic acid amplification for detection of high-risk Human Papilloma virus (HPV) is performed by the Sis Sheryl 6800 HPV test. This assay specifically detects HPV-16 and HPV-18 genotypes. The following HPV genotypes are detected as high-risk HPV: HPV-31, 33, 35, ,39, 45, 51, 52, 56, 58, 59, 66, and 68. This assay has been approved by the [place] States Food and Drug Administration for detection of HPV in cervical specimens collected by a physician using an endocervical brush/spatula or cervical broom and placed in the ThinPrep Pap Test PreservCyt collection containers. The performance characteristics of this test have been verified by the [facility] Molecular Infectious Disease laboratory. Correlate with separately reported cytology results, as applicable. Interpretive data last revised 23 Endocervical 12/09/2023 9:35 AM CDT 12/09/2023 6:50 PM CDT Narrative [facility] - 12/10/2023 1:22 AM CDT Clinical history and diagnosis->38 yo with irregular menstrual cycles and a large ovarian cyst Testing type->Screening Last menstrual period (date if known)->11/23/23 Menstrual status->Irregular Zulma No MD LAB BODY FLUIDS AND ST OOLS ORDERABLES Final Result [facility] Department [place] [address] [facility] from Last 3 Months or Most Recently Relevant to Health Maintenance Insurance [place] [employer] CHOICE OOS Your Image by Brooke [facility] CHOICE OOS [employer] Care Teams Infirmary Attendant Relationship Specialty Start Date End Date Harish Lofton NP [address] [facility] [address] [place] [address] PCP - General Nurse Practitioner 12/09/23 Harish Lofton NP 2 [facility] [address] [place] [address] Nurse Practitioner 03/25/23
--- OUTSIDE RECORDS SUMMARY | 2025-02-14 07:02 | XMS_ITS | Clinical Summary ---
Author Organization [facility] Virtual Care Address [address] [place] [phone] Phone Care Team Providers Care Business Development Sales Executive Name Role Phone Harish Lofton NP Unavailable [phone] Harish Lofton NP Primary Care Provider Allergies [...] Dates Next Due MMR 12/02/2018 Tdap 12/02/2018 Surgical History Surgery Date Site/Laterality Comments NECK SURGERY REDUCTION MAMMAPLASTY TUBAL LIGATION Bilateral APPENDECTOMY OTHER SURGICAL HISTORY 07/14/2023 - 07/13/2024 gastric sleeve Medical History Medical History Date Comments PONV (postoperative nausea and vomiting) scope patch with relief Social History Tobacco Use Types Packs/Day Years [...] on file Legal Sex Female 6:17 PM DISTILLATION OPERATOR HELPER Gender Identity Not on file Sexual Orientation Not on file Obstetrics History Last Filed Vital Signs Vital Sign Reading [...] 02/03/2024 4:30 PM CDT Plan of Treatment Health Maintenance Due Date Last Done Comments Albumin Creatinine Ratio, Urine 1986 Depression Screening 1986 Hepatitis C Screening 1986 Dilated Eye Exam 1986 Foot Exam 1986 Lipid Panel 1986 Varicella Vaccines (1 of 2 - 13+ 2-dose series) 10/17/1999 Hepatitis B Screening 2004 Regular Well Visit/Exam 18-64 2004 Pneumococcal vaccine <65 (1 of 2 - PCV) 2005 HPV Vaccines (1 - 3-dose SCDM series) 2013 Hemoglobin A1C 08/05/2024 02/03/2024, 05/14/2023 Cervical Cancer Screening 12/08/2024 12/09/2023, eGFR 02/02/2025 02/03/2024, 05/14/2023 Influenza Vaccine (#1) 2025 DTaP/Tdap/Td Vaccine (2 - Td or Tdap) 12/02/2028 Procedures Procedure Name Priority Date/Time Associated Diagnosis [...] CDT 02/03/2024 5:45 PM CDT Noelle Man RAILROAD CAR LETTERER LAB BLOOD ORDERABLES nal Result [facility] Department [place] [address] * (ABNORMAL) POCT hemoglobin A1c (02/03/2024 5:01 PM CDT) Hgb A1C, POC 5.8(H) 4.0 - 5.6 % Est Average Gluc POC 120 mg/dL [facility] Comment: The ADA recommends reporting an estimated Average Glucose (eAG) with all Hemoglobin A1c results using the equation derived from a study of 507 normal and diabetic adults. Minority populations were underrepresented and children were not included. (Diabetes Care 31:3163-8576, 2008). The eAG is not equivalent to a fasting glucose. Blood 02/03/2024 5:01 PM CDT 02/03/2024 5:01 PM CDT Zulma No MD POINT OF CARE TEST ORD ERABLES Final Result [facility] Department [place] [address] * High Risk HPV DNA Detection with Genotyping (Molecular component) (12/09/2023 9:35 AM CDT) Pathologist [facility] HPV HR 16 Not Detected Not Detected [facility] HPV HR 18 Not Detected Not Detected [facility] HPV HR Non 16/18 Not Detected Not Detected [facility] Comment: Interpretive Data Nucleic acid amplification [...] this test have been verified by the [facility] Molecular Infectious Disease laboratory. Correlate with separately reported cytology results, as applicable. Interpretive data last revised 23 Endocervical 12/09/2023 9:35 AM CDT 12/09/2023 6:50 PM CDT Narrative [facility] - 12/10/2023 1:22 AM CDT Clinical history and diagnosis->38 yo with irregular menstrual cycles and a large ovarian cyst Testing type->Screening Last menstrual period (date if known)->11/23/23 Menstrual status->Irregular us Zulma No MD LAB BODY FLUIDS AND ST OOLS ORDERABLES Final Result [facility] Department [place] [address] [facility] from Last 3 Months or Most Recently Relevant to Health Maintenance Insurance [employer] BLUE ACC CHOICE OOS Care Teams Business Development Sales Executive Relationship Specialty Start Date End Date Harish Lofton NP 2 [facility] [place] [address] PCP - General Nurse Practitioner 12/09/23 Harish Lofton NP 2 [facility] [address] [place] [address] Nurse Practitioner 03/25/23
--- OUTSIDE RECORDS SUMMARY | 2025-02-14 07:02 | XMS_ITS | Encounter Summary ---
Author Organization [facility] Address [address] [place] [address] Phone Care Team Providers Care Shellfish Farming Supervisor Name Role Phone Harish Lofton APRN, CNP Primary Care Pr ovider Reason for Visit * Reason Comments Medication Refill Encounter Details Date Type Department Care Team (Late st Contact Info) Description 09/27/2024 Refill [facility]2 [place] [address] Harish Lofton APRN, CNP #[address] [id number] Medication Refill Social History Tobacco Use Types [...] on file Legal Sex Female 8:31 AM EXERCISE PHYSIOLOGIST Gender Identity Not on file Sexual Orientation Not on file documented as of this encounter Miscellaneous Notes * Telephone Encounter - Hiral Wallis, RN - 09/28/2024 9:37 AM CDT Last appt 03/27/23 - needs OV/labs documented in this encounter Plan of Treatment Upcoming Encounters Date Type Department Care Team (Late st Contact Info) Description 02/14/2025 1:00 PM CDT Office Visit [facility] [place] [address] Harish Lofton APRN, EVAPORATOR REPAIRER #[address] [address] documented as of this encounter Visit Diagnoses Not on filedocumented in this encounter Additional Health Concerns Assessment Noted Time PHQ-9 Depression Total Score: 0 08/30/19 23 3:00 PM EXERCISE PHYSIOLOGIST documented as of this encounter Care Teams Shellfish Farming Supervisor Relationship Specialty Start Date End Date Harish Lofton APRN, EVAPORATOR REPAIRER #[address] [address] PCP - General Advanced Practice Nurse 07/12/22 documented as of this encounter
--- OUTSIDE RECORDS SUMMARY | 2025-02-14 07:36 | XMS_ITS | Clinical Summary ---
Author Organization [facility] Virtual Care Address [address] [place] [address] Phone Care Team Providers Care Field Crop Farming Supervisor Name Role Phone Harish Lofton NP Unavailable [phone] Harish Lofton NP Primary Care Provider Allergies [...] on file Legal Sex Female 6:17 PM INSURANCE FOLLOW UP REP Gender Identity Not on file Sexual Orientation [...] CDT 02/03/2024 5:45 PM CDT Noelle [facility] BLOOD ORDERABLES nal Result VLADISLAV [facility] Department [place] [address] * (ABNORMAL) POCT hemoglobin A1c (02/03/2024 5:01 [...] and children were not included. (Diabetes Care 31:3716-8563, 2008). The eAG is not equivalent to a fasting glucose. Blood 02/03/2024 5:01 PM CDT 02/03/2024 5:01 PM CDT Zulma No MD POINT OF CARE TEST ORD ERABLES Final Result [facility] Department [place] [address] * High Risk HPV DNA Detection with Genotyping (Molecular component) (12/09/2023 9:35 AM CDT) Pathologist [facility] HPV HR 16 Not Detected Not Detected [facility] HPV HR 18 Not Detected Not Detected VLADISLAV [facility] HPV HR Non 16/18 Not Detected Not Detected VLADISLAV [facility] Comment: Interpretive Data Nucleic acid amplification [...] this test have been verified by the [facility] Molecular Infectious Disease laboratory. Correlate with separately reported cytology results, as applicable. Interpretive data last revised 23 Endocervical 12/09/2023 9:35 AM CDT 12/09/2023 6:50 PM CDT Narrative VLADISLAV [facility] - 12/10/2023 1:22 AM CDT Clinical history and diagnosis->38 yo with irregular menstrual cycles and a large ovarian cyst Testing type->Screening Last menstrual period (date if known)->11/23/23 Menstrual status->Irregular us Zulma No MD LAB BODY FLUIDS AND ST OOLS ORDERABLES Final Result VLADISLAV [facility] Department [place] [address] [facility] from Last 3 Months or Most Recently Relevant to Health Maintenance Insurance [employer] BLUE ACC CHOICE OOS Care Teams Field Crop Farming Supervisor Relationship Specialty Start Date End Date Harish Lofton NP [address] [place] [address] PCP - General Nurse Practitioner 12/09/23 Harish Lofton NP [address] [place] [place] [facility] [address] [place] [address] Nurse Practitioner 03/25/23
--- OUTSIDE RECORDS SUMMARY | 2025-02-14 07:36 | XMS_ITS | Clinical Summary ---
Author Organization [facility] Address [address] [place] [address] Phone Care Team Providers Care Apartment Rental Clerk Name Role Phone Harish Lofton APRN, DIGESTER CAPPER Primary Care Pr ovider Allergies Active Allergy [...] Description 12/08/2024 Refill [facility] [place] [address] Harish Lofton, KENNEL SUPERVISOR, DIGESTER CAPPER Medication Refill from Last 3 Months Immunizations Immunization Administration Dates Next Due Influenza,Split Virus,Trivalent,Injectable,PF MMR Vaccine 12/02/2018 Pneumococcal conjugate PCV20 , polysaccharide [id number] conjugate, adjuvant, PF 10/22/2024 TDAP Vaccine 12/02/2018 [...] drink = 0.6 oz pur e alcohol) [facility] Utilities Answer Date Recorded In the past 12 months has [employer], [employer], oil, or water [employer] threatened to shut off services in your home? No 10/21/2024 Social Connection and Isolation Panel Answer Date Recorded In a typical week, how many times do you talk on the phone with family, friends, or neighbors? Three times a week 10/21/2024 How often do you get togethe r with friends or relatives? Twice a week 10/21/2024 How often do you attend [facility] or shinto services? Never 10/21/2024 Do you belong to [...] Total Score - Questions 1-9 0 10/12 [facility] - Occupational Stress [...] any time in the past 12 [facility], were you homeless or living in a detention (including now)? No 10/21/2024 Education Answer Date Recorded What is the highest level of school you have completed or the highest degree you have received? Some college, no degree 08/29/2022 Comments Unknown Sex and Gender Information Value Date Recorded Sex Assigned at Not on file Legal Sex Female 8:31 AM SOCIAL SERVICE LIAISON Gender Identity Not on file Sexual Orientation [...] Visit [facility] [place] [address] Harish Lofton, KENNEL SUPERVISOR, DIGESTER CAPPER #[address] [address] Health Maintenance Due Date Last Done Comments [...] 6.0 % 10/22/2024 10:48 AM CDT [facility] Est Average Glucose 114.0 mg/dL 10/22/2024 10:48 AM CDT [facility] Blood Venipuncture / Unknown 10/22/2024 8:56 AM CDT 10/22/2024 10:27 AM CDT Narrative [facility] - 10/22/2024 10:48 AM CDT HEMOGLOBIN A1C: DIABETIC PATIENTS: WELL-CONTROLLED: 6.2 - 7.0 INTERMEDIATE WELL-CONTROLLED: 7.0 - 9.0 POORLY-CONTROLLED: >9.0 Specimens containing greater than 5% of Hemoglobin F may result in lower than expected % HbA1C results. us Harish Lofton APRN, CNP CHEMISTRY ORDERA BLES Final Result [facility] #1 [place] [address] * (ABNORMAL) CMP (COMPREHENSIVE METABOLIC PANEL) (10/22/2024 8:56 AM CDT) SODIUM 140 136 - 145 mmol/L 10/22/2024 10:54 AM CDT [facility] POTASSIUM 3.8 3.5 - 5.1 mmol/L 10/22/2024 10:54 AM CDT [facility] CHLORIDE 109(H) 98 - 107 mmol/L 10/22/2024 10:54 AM CDT [facility] CO2, VENOUS 24 22 - 30 mmol/L 10/22/2024 10:54 AM CDT [facility] ANION GAP 10.8 <18.0 mmol/L 10/22/2024 10:54 AM CDT [facility] GLUCOSE 82 70 - 99 mg/dL 10/22/2024 10:54 AM CDT [facility] BUN 11 5 - 18 mg/dL 10/22/2024 10:54 AM CDT [facility] CREATININE, BLOOD 0.74 0.60 - 1.00 mg/dL 10/22/2024 10:54 AM CDT [facility] BUN/CREATININE RATIO 15 12 - 20 ratio 10/22/2024 10:54 AM CDT [facility] TOTAL PROTEIN 7.2 6.0 - 8.0 g/dL 10/22/2024 10:54 AM CDT [facility] ALBUMIN 4.1 3.5 - 5.0 g/dL 10/22/2024 10:54 AM CDT [facility] A/G RATIO 1.3 1.0 - 2.2 10/22/2024 10:54 AM CDT [facility] CALCIUM 8.9 8.7 - 10.5 mg/dL 10/22/2024 10:54 AM CDT [facility] T BILI 0.5 0.2 - 1.2 mg/dL 10/22/2024 10:54 AM CDT [facility] SGOT (AST) 16 <43 U/L 10/22/2024 10:54 AM CDT [facility] SGPT (ALT) 9 <56 U/L 10/22/2024 10:54 AM CDT [facility] ALKALINE PHOSPHATASE 83 40 - 150 U/L 10/22/2024 10:54 AM CDT [facility] IS THE PATIENT REQUIRED TO BE FASTING? No 10/22/2024 10:54 AM CDT [facility] GFR, ESTIMATED >60 >=60 10/22/2024 10:54 AM CDT [facility] Comment: Creatinine Clearance is the preferred criteria for selecting drug dose adjustments in renally impaired patients. The GFR is provided as additional pertinent clinical information. GFR is reported in mL/min/1.73 sq m. Calculation based on the Chronic Kidney Disease Epidemiology Collaboration (CKD- EPI) equation refit without adjustment for race. GFR, EST. >60 >=60 025 10:54 AM CDT [facility] GFR, EST. NONAFRICAN >60 >=60 10/22/2024 10:54 AM T [facility] Blood Venipuncture / Unknown 10/22/2024 8:56 AM CDT 10/22/2024 10:26 AM CDT Harish Lofton KENNEL SUPERVISOR, DIGESTER CAPPER CHEMISTRY ORDERA BLES Final Result [facility] [address] [place] [address] from Last 3 Months or Most Recently Relevant to Health Maintenance Insurance * Guarantor: BLAKE MONSON Account Type Relation to Patient Date of Phone Billing Address Personal/Family 1985 [address], [facility] [facility] on file Care Teams Apartment Rental Clerk Relationship Specialty Start Date End Date Harish Lofton APRN, DIGESTER CAPPER [address]2 [place] [address] PCP - General Advanced Practice Nurse 07/12/22
--- OUTSIDE RECORDS SUMMARY | 2025-02-14 07:36 | XMS_ITS | Referral Summary ---
Author Organization [facility] Virtual Care Address [address] [place] [address] Phone Care Team Providers Care 4Th Grade Teacher Name Role Phone Harish Lofton NP Unavailable [phone] Harish Lofton NP Primary Care Provider Allergies [...] on file Legal Sex Female 6:17 PM EDITOR FARM JOURNAL Gender Identity Not on file Sexual Orientation [...] ORDERABLES Fi nal Result Performing Organization Address City/[facility] Co de Phone Number [facility] [place] [address] * (ABNORMAL) POCT hemoglobin A1c (02/03/2024 5:01 PM CDT) Pathologist [facility] Hgb A1C, POC 5.8(H) 4.0 - 5.6 % Est Average Gluc POC 120 mg/dL [facility] Comment: The ADA recommends reporting an estimated Average Glucose (eAG) with all Hemoglobin A1c results using the equation derived from a study of 507 normal and diabetic adults. Minority populations were underrepresented and children were not included. (Diabetes Care 31:5548-4451, 2008). The eAG is not equivalent to a fasting glucose. Blood 02/03/2024 5:01 PM CDT 02/03/2024 5:01 PM CDT Zulma No MD POINT OF CARE TEST ORD ERABLES Final Result Performing Organization Address [facility] Co de Phone Number [facility] [place] [address] * High Risk HPV DNA Detection with Genotyping (Molecular component) (12/09/2023 9:35 AM CDT) Pathologist [facility] HPV HR 16 Not Detected Not Detected [facility] HPV HR 18 Not Detected Not Detected [facility] HPV HR Non 16/18 Not Detected Not Detected [facility] Comment: Interpretive Data Nucleic acid amplification for [...] this test have been verified by the [facility] Molecular Infectious Disease laboratory. Correlate with separately reported cytology results, as applicable. Interpretive data last revised 23 Endocervical 12/09/2023 9:35 AM CDT 12/09/2023 6:50 PM CDT Narrative [facility] - 12/10/2023 1:22 AM CDT Clinical history and diagnosis->38 yo with irregular menstrual cycles and a large ovarian cyst Testing type->Screening Last menstrual period (date if known)->11/23/23 Menstrual status->Irregular Zulma No MD LAB BODY FLUIDS AND ST OOLS ORDERABLES Final Result [facility] One [facility] Department [place] [address] [facility] from Last 3 Months or Most Recently Relevant to Health Maintenance Insurance [place] [employer] OOS [email or web address] [facility] CHOICE OOS [employer] CHOICE OOS Care Teams 4Th Grade Teacher Relationship Specialty Start Date End Date Harish Lofton NP [address] [place] [facility] [address] [place] [address] PCP - General Nurse Practitioner 12/09/23 Harish Lofton NP [address] [place] [facility] [address] [place] [address] Nurse Practitioner 03/25/23
--- OUTSIDE RECORDS SUMMARY | 2025-02-14 07:36 | XMS_ITS | Encounter Summary ---
Author Organization [facility] Address [address] [facility] [place] [address] Phone Care Team Providers Care School Psychometrist Name Role Phone Harish Lofton APRN, CNP Primary Care Pr ovider Reason for Visit * Reason Comments Medication Refill Encounter Details Date Type Department Care Team (Late st Contact Info) Description 09/27/2024 Refill [facility]2 [place] [address] Harish Lofton APRN, CNP #[address] [phone] Medication Refill Social History Tobacco Use Types [...] on file Legal Sex Female 8:31 AM HAND SPINNER Gender Identity Not on file Sexual Orientation [...] Visit [facility]2 [place] [address] Harish Lofton APRN, ULTRASOUND MANAGER #[address] [address] documented as of this encounter Visit Diagnoses Not on filedocumented in this encounter Additional Health Concerns Assessment Noted Time PHQ-9 Depression Total Score: 0 08/30/19 23 3:00 PM HAND SPINNER documented as of this encounter Care Teams School Psychometrist Relationship Specialty Start Date End Date Harish Lofton APRN, ULTRASOUND MANAGER #[address] [address] PCP - General Advanced Practice Nurse 07/12/22 documented as of this encounter
--- OUTSIDE RECORDS SUMMARY | 2025-02-14 07:36 | XMS_ITS | Encounter Summary ---
Author Organization [facility] Address [address] [place] [address] Phone Care Team Providers Care Motor Block Mechanic Name Role Phone Harish Lofton APRN, CNP Primary Care Pr ovider Julius Yadav MD Unavailable Esau lemons Reason for Visit * Reason Comments Medication Refill Encounter Details Date Type Department Care Team (Late st Contact Info) Description 12/15/2022 Refill [facility] - [facility] #2 [place] [phone] Harish Lofton APRN, TEN #[address] [address] Medication Refill Social History Tobacco Use Types [...] on file Legal Sex Female 8:31 AM NIGHT NURSE Gender Identity Not on file Sexual Orientation [...] Visit [facility] #2 [place] [address] Harish Lofton APRN, CNP #[address] [address] documented as of this encounter Visit Diagnoses Diagnosis Anxiety Anxiety state, unspecified documented in this encounter Additional Health Concerns Assessment Noted Time PHQ-9 Depression Total Score: 0 08/30/19 23 3:00 PM NIGHT NURSE documented as of this encounter Care Teams Motor Block Mechanic Relationship Specialty Start Date End Date Harish Lofton APRN, CNP #[address] [address] PCP - General Advanced Practice Nurse 07/12/22 Julius Yadav MD #[address] [address] Consulting Physician Cardiovascular Disease - Cardiology 08/12/22 06/23/24 documented as of this encounter
--- OUTSIDE RECORDS SUMMARY | 2025-02-14 07:36 | XMS_ITS | Encounter Summary ---
Author Organization [facility] Address [address] [place] [address] Care Team Providers Care Fiscal Specialist Name Role Phone Unavailable Primary Care Provider Unavailabl e Encounter Details Date Type Department Care Team (Late st Contact Info) Description 08/19/2023 Abstract [facility] Operating Room [address] [phone] Blaine Waters MD [address] [place] [address] Social History Tobacco Use Types Packs/Day Years [...]
--- OUTSIDE RECORDS SUMMARY | 2025-02-14 07:36 | XMS_ITS | Encounter Summary ---
Author Organization [facility] Address [address] [place] [address] Phone Care Team Providers Care Contact Lens Curve Grinder Name Role Phone Harish Lofton APRN, CNP Primary Care Pr ovider Julius Yadav MD Unavailable Esau lemons Reason for Visit * Reason Comments Medication Refill Encounter Details Date Type Department Care Team (Late st Contact Info) Description 09/29/2022 Refill [facility] - Family Medicine [facility] #2 [place] [phone] Harish Lofton APRN, TNE #[address] [address] Medication Refill Social History Tobacco Use Types [...] on file Legal Sex Female 8:31 AM TRAIN BRAKEMAN Gender Identity Not on file Sexual Orientation Not on file documented as of this encounter Plan of Treatment Upcoming Encounters Date Type Department Care Team (Late st Contact Info) Description 02/14/2025 1:00 PM CDT Office Visit [facility] [address]2 [place] [address] Harish Lofton APRN, TEN #[address] [address] documented as of this encounter Visit Diagnoses Diagnosis Type 2 diabetes mellitus with hyperglycemia, without long-term current use of insulin (HCC) documented in this encounter Additional Health Concerns Assessment Noted Time PHQ-9 Depression Total Score: 0 08/30/19 3:00 PM TRAIN BRAKEMAN documented as of this encounter Care Teams Contact Lens Curve Grinder Relationship Specialty Start Date End Date Harish Lofton APRN, TEN #[address] [address] PCP - General Advanced Practice Nurse 07/12/22 Julius Yadav MD #[address] [address] Consulting Physician Cardiovascular Disease - Cardiology 08/12/22 06/23/24 documented as of this encounter
--- OUTSIDE RECORDS SUMMARY | 2025-02-14 07:36 | XMS_ITS | Encounter Summary ---
Author Organization [facility] Address [address] [place] [address] Phone Care Team Providers Care Emergency Management System Director Name Role Phone Harish Lofton APRN, CNP Primary Care Pr ovider Julius Yadav MD Unavailable Esau lemons Reason for Visit * Reason Comments Medication Refill Encounter Details Date Type Department Care Team (Late st Contact Info) Description 11/08/2022 Refill [facility] - Family Medicine [facility] #2 [place] [phone] Harish Lofton APRN, TEN #[address] [address] Medication Refill Social History Tobacco Use Types [...] on file Legal Sex Female 8:31 AM AUTOMOBILE LIGHTS ASSEMBLER Gender Identity Not on file Sexual Orientation [...] Visit [facility] [address]2 [place] [address] Harish Lofton APRN, TEN #[address] [address] documented as of this encounter Visit Diagnoses Diagnosis Anxiety Anxiety state, unspecified documented in this encounter Additional Health Concerns Assessment Noted Time PHQ-9 Depression Total Score: 0 08/30/19 23 3:00 PM AUTOMOBILE LIGHTS ASSEMBLER documented as of this encounter Care Teams Emergency Management System Director Relationship Specialty Start Date End Date Harish Lofton APRN, TEN #[address] [address] PCP - General Advanced Practice Nurse 07/12/22 Julius Yadav MD #[address] [address] Consulting Physician Cardiovascular Disease - Cardiology 08/12/22 06/23/24 documented as of this encounter
--- OUTSIDE RECORDS SUMMARY | 2025-02-14 07:36 | XMS_ITS | Clinical Summary ---
Author Organization [facility] Address [address] [facility] [address] [place] [address] Phone Care Team Providers Care Packing Machine Can Feeder Name Role Phone Unavailable Primary Care Provider [...] for Pain. 28 Tablet 09/02/2023 11:18 AM BI DATA MODELER 09/01/2023 Active ondansetron (ZOFRAN ODT) 4 mg Tablet, Rapid Dissolve Dissolve 1 tablet on top of tongue, then swallow with saliva every 6 hours as needed for Nausea/Vomiti ng. 28 Tablet 09/02/2023 11:18 AM BI DATA MODELER 09/01/2023 Active Active Problems Problem Noted Date [...] Comments Blood Pressure 130/78 09/02/2023 12:33 PM BI DATA MODELER Pulse 60 09/02/2023 11:41 AM BI DATA MODELER Temperature 36.6 C (97.9 F) 09/02/2023 11:41 AM BI DATA MODELER Respiratory Rate 16 09/02/2023 11:41 AM BI DATA MODELER Oxygen Saturation 99% 09/02/2023 12:21 PM BI DATA MODELER Inhaled Oxygen Concentration - - Weight 88.5 kg (195 lb 3.2 oz) 09/01/2023 11:14 AM BI DATA MODELER Height 160 cm (5' 3) 09/01/2023 11:14 AM BI DATA MODELER Body Mass Index 34.58 09/01/2023 11:14 AM BI DATA MODELER Plan of Treatment Health Maintenance Due Date [...] Tdap) 12/02/2028 Medical Devices Implanted Type Area Chemical Analytical Sampler Device Identifier Shelf Expiration Date Model / Serial / Lot Seamguard Endogia 60 Prpl [id number] - [id number] Implanted:Qty : 1 on 09/01/2023 by Blaine Waters MD at [facility] N/A: Stomach [employer] [id number] 04/05/2026 12BSGTRI 60P / / [id number] Seamguard Endogia 60 Blk [id number] - [id number] Implanted:Qty : 1 on 09/01/2023 by Blaine Waters MD at [facility] N/A: Stomach [employer] [id number] 01/05/2026 12BSGTRI 60B / / [id number] Seamguard Endogia 60 Blk [id number] - [id number] Implanted:Qty : 1 on 09/01/2023 by Blaine Waters MD at [facility] N/A: Stomach [employer] [id number] 01/05/2026 12BSGTRI 60B / / [id number] Seamguard Endogia 60 Prpl [id number] - [id number] Implanted:Qty : 1 on 09/01/2023 by Blaine Waters MD at [facility] N/A: Stomach [employer] [id number] 04/05/2026 12BSGTRI 60P / / [id number] Seamguard Endogia 60 Prpl [id number] - [id number] Implanted:Qty : 1 on 09/01/2023 by Blaine Waters MD at [facility] N/A: Stomach [employer] [id number] 03/17/2026 12BSGTRI 60P / / [id number] Artificial Cercical Disc And Hardware Cervical Spine Insurance [facility] [place] [address] RX [employer] (INTERNAL) [facility] Internal Plans Advance Directives For more information, please contact: [phone] * Full Code (Latest Code Status on File) Date Activated Date Inactivated Comments 09/01/2023 7:33 AM 09/02/2023 4:51 PM * Full Code Date Activated Date Inactivated Comments 09/01/2023 5:47 AM 09/01/2023 7:32 AM
--- OUTSIDE RECORDS SUMMARY | 2025-02-14 07:36 | XMS_ITS | Clinical Summary ---
Author Organization [facility] Address [address] [place] [address] Care Team Providers Care Fern Cutter Name Role Phone Unavailable Primary Care Provider Unavailabl e Source Comments [facility],non-owned Affiliates and Associated Physician Practices is amultiple site organization consisting of ambulatory clinics and hospital sitesin [place], [place], [place] and [place]. This disclosure is being madepursuant to the Care Everywhere program and may not contain all information available regarding this patient. Last updated 18.[facility] Allergies Active Allergy Reactions Criticality Noted Date [...] on file Legal Sex Female 5:37 PM [employer] Gender Identity Not on file Sexual Orientation Not on file Last Filed Vital Signs Vital Sign Reading Time Taken Comments Blood Pressure 112/73 08/20/2017 12:01 PM [employer] Pulse 68 08/20/2017 12:01 PM [employer]LECT[employer] OPERATOR Temperature 37.3 C (99.1 F) 08/20/2017 12:01 PM [employer]LECT[employer]ARD OPERATOR Respiratory Rate 18 08/09/2017 8:20 AM ELECTRIC SHIPYARD OPERATOR Oxygen Saturation 98% 08/13/2017 10:56 AM ELECTRIC SHIPYARD OPERATOR Inhaled Oxygen Concentration - - Weight 86.2 kg (190 lb) 08/20/2017 12:01 PM ELECTRIC SHIPYARD OPERATOR Height 160 cm (5' 3) 08/20/2017 12:01 PM [employer]LECT[employer]IC SHIPYARD OPERATOR Body Mass Index 33.66 08/20/2017 12:01 PM ELECTRIC [employer]IPYARD OPERATOR Plan of Treatment Health Maintenance Due [...] patient's age to complete this topic Insurance [facility]
[2025-02-14 07:39] VITALS: BP 124/70; PULSE 54; RESP 100; TEMP 36.3; O2SAT 100
[2025-02-14 07:44] LABS: BEDSIDEPREGUCG Negative (Negative)
[2025-02-14 07:44] LABS: Hematocrit 34.6 % (37.0-47.0); Hemoglobin 10.5 g/dL (12.0-15.0); Immature Granulocyte Percent A 0.3 % (0-0.5); Lymphocytes Absolute Auto 1.02 K/mm3 (0.9-3.2); Mean Corpuscular HGB Conc 30.3 g/dl (32-36); Mean Corpuscular Hemoglobin 24.4 pg (26-34); Mean Corpuscular Volume 80.3 fl (80-100); Nucleated Red Blood Cells Absolute Auto 0.000 K/mm3 (0.0-0.012); Nucleated Red Blood Cells Perc 0.0 % (0.0-0.2); Platelet Count Result 201 k/mm3 (150-375); Red Blood Count 4.31 M/mm3 (4.2-5.4); White Blood Count 7.9 K/mm3 (4.5-10.0)
[2025-02-14] MEDS: SODIUM CHLORIDE 0.9% IV 1,000 ML 999 ML IV CONT (07:49)
[2025-02-14] MEDS: MORPHINE SULFATE (*CRX) 4 MG/ML INJ IV PUSH ×2 (07:50→08:42)
[2025-02-14] MEDS: ONDANSETRON INJ 4 MG/2 ML VIAL IV PUSH ×2 (07:50→09:16)
[2025-02-14 08:06] LABS: Add Urine Microscopic? YES; Alanine Aminotransferase 13 U/L (6-35); Albumin Level 4.1 g/dL (3.5-5.1); Alkaline Phosphatase 81 U/L (38-126); Anion Gap 8 mmol/L (4-12); Appearance Urine Cloudy (Clear); Aspartate Amino Transferase 23 U/L (14-36); Bilirubin,Total 0.5 mg/dL (0.2-1.3); Blood Urea Nitrogen 14 mg/dL (7-17); Calcium 9.1 mg/dL (8.4-10.2); Carbon Dioxide 21 mmol/L (22-30); Chloride 109 mmol/L (98-107); Estimated CRCL calculation 79 ml/min; Estimated Glomerular Filt Rate > 60; Glucose 134 mg/dL (65-110); Potassium 3.6 mmol/L (3.4-5.0); Sodium 138 mmol/L (137-145); Total Protein 7.1 g/dL (6.3-8.2)
[2025-02-14 08:07] LABS: Glucose Urine UA Negative (Negative); Leukocyte Esterase Ur Negative LEU/UL (Negative); Nitrate Urine Negative (Negative); Specific Grav Ur 1.030 (1.001-1.035)
[2025-02-14 09:17] VITALS: BP 112/69; PULSE 67; RESP 18; TEMP 36.6; O2SAT 99
[2025-02-14] MEDS: KETOROLAC 15 MG/ML VIAL (*BKC) IV PUSH (09:37)
[2025-02-14] MEDS: METOCLOPRAMIDE HCL INJ 10 MG/2 ML VIAL 5 MG IV PUSH (09:37)
[2025-02-14 09:39] VITALS: BP 122/69; PULSE 74; RESP 16; O2SAT 99
--- NOTE | 2025-02-14 10:23 | ED_ITS ---
HPI - Abdominal Pain General Chief Complaint: Abdominal Pain Stated Complaint: RLQ pain, vag bleeding, cyst? Time Seen by Provider: 02/14/25 07:05 Source: patient Mode of arrival: ambulatory Limitations: no limitations History of Present Illness HPI narrative: 39-year-old with a history of status post gastric bypass here with a complaint of sudden onset of right-sided abdominal pain with started few hours ago. Patient states feels extremely nauseated and vomited. She states that she had history of kidney stones few years ago denies any fever or chills. MD elicited complaint: abdominal pain Onset (ago): hour(s) (4) Pain Consistency: constant Location: RLQ and R flank Severity: severe Quality: stabbing Radiation: R flank Exacerbating factors: nothing Relieving factors: nothing Associated symptoms: nausea and vomiting Related Data Allergies Allergy/AdvReac Type Severity Reaction Status Date / Time codeine AdvReac Mild Nausea and Verified 02/14/25 09:41 Vomiting Review of Systems 2 Review of Systems: All systems reviewed & are unremarkable except as noted in HPI and below Constitutional: Constitutional: Reports no additional constitutional complaints Eyes: Eyes: Reports no additional eye complaints ENT: Reports system reviewed and no additional complaints, except as documented Cardiovascular: Cardiovascular: Reports no additional cardiovascular complaints Respiratory: Respiratory: Reports no additional respiratory complaints Gastrointestinal: Gastrointestinal: Reports as per HPI Musculoskeletal: Musculoskeletal: Reports no additional musculoskeletal complaints Integumentary/Breasts: Skin/Breast: Reports system reviewed and no additional complaints, except as docu [facility] Family History Family History Other Diabetes mellitus Family history of cardiovascular disease Social History Social History Smoking status: Never smoker Alcohol intake: current Exam 2 Narrative: GENERAL: Well-appearing, well-nourished, and in no acute distress. HEAD: Normocephalic, atraumatic. EYES: PERRLA and EOMI. ENT: Nares clear, no rhinorrhea or epistaxis. Mucous membranes moist. NECK: Supple. CHEST: Clear to auscultation. No respiratory distress. HEART: Regular rate and rhythm. No murmur heard. Normal peripheral pulses. ABDOMEN: Soft, nontender, nondistended, normal active bowel sounds. EXTREMITIES: Normal range of motion. No edema. SKIN: Warm, dry, no rash. NEURO: No focal deficits. Alert and oriented x3. PSYCH: Normal mood and affect. Course Course Emergency Course: Patient feeling much better after couple rounds of morphine and Zofran. Did inform her about the lab work, CT findings. I did give additional Toradol 15 mg and Reglan for nausea and pain control issues feeling much better. Advised her to drink more fluids as tolerated, follow with a urologist as needed Vital Signs Vital signs: Vital Signs Temperature 36.8 C 02/14/25 07:02 Pulse Rate 69 02/14/25 07:02 Respiratory Rate 18 02/14/25 07:02 Blood Pressure 108/91 H 02/14/25 07:02 Pulse Oximetry 99 02/14/25 07:02 Oxygen Delivery Room Air 02/14/25 07:02 Temperature 36.6 C 02/14/25 09:17 Pulse Rate 74 02/14/25 09:39 Respiratory Rate 16 02/14/25 09:39 Blood Pressure 122/69 02/14/25 09:39 Pulse Oximetry 99 02/14/25 09:39 Oxygen Delivery Room Air 02/14/25 07:39 MDM - Abdominal Pain Differential Diagnosis Differential diagnosis: Likely abdominal pain and calculus of kidney Medical Records Attestation: I reviewed the patient's medical records. Lab Data Attestation: I reviewed the patient's lab results. 02/14/25 07:35 02/14/25 07:35 Labs: Lab Results 02/14/25 02/14/25 Range/Units 07:35 07:43 WBC 7.9 (4.5-10.0) K/mm3 RBC 4.31 (4.2-5.4) M/mm3 Hgb 10.5 L D (12.0-15.0) g/dL Hct 34.6 L (37.0-47.0) % MCV 80.3 (80-100) fl MCH 24.4 L (26-34) pg MCHC 30.3 L (32-36) g/dl RDW 13.7 (11.5-14.5) % Plt Count 201 (150-375) k/mm3 MPV 12.1 H (7.4-10.4) fl Immature Gran % (Auto) 0.3 (0-0.5) % Neut % (Auto) 81.8 H (45.5-73.1) % Lymph % (Auto) 12.9 L (18.3-44.2) % [place] % (Auto) 4.1 (2.6-8.5) % Eos % (Auto) 0.5 (0-4.4) % Baso % (Auto) 0.4 (0.2-1.2) % Lymph # (Auto) 1.02 (0.9-3.2) K/mm3 [place] # (Auto) 0.3 (0.1-0.6) K/mm3 Eos # (Auto) 0.0 (0-0.3) K/mm3 Baso # (Auto) 0.0 (0.0-0.1) K/mm3 Abs Immat Gran (auto) 0.02 (0.00-0.031) K/mm3 Absolute Neuts (auto) 6.5 (1.3-6.7) K/mm3 Absolute Nucleated RBC 0.000 (0.0-0.012) K/mm3 Nucleated RBC % 0.0 (0.0-0.2) % Sodium 138 (137-145) mmol/L Potassium 3.6 (3.4-5.0) mmol/L Chloride 109 H (98-107) mmol/L Carbon Dioxide 21 L (22-30) mmol/L Anion Gap 8 (4-12) mmol/L BUN 14 (7-17) mg/dL Creatinine 0.78 (0.7-1.0) mg/dL Estim Creat Clear Calc 79 ml/min Estimated GFR > 60 (59 - ) Glucose 134 H (65-110) mg/dL Calcium 9.1 (8.4-10.2) mg/dL Total Bilirubin 0.5 (0.2-1.3) mg/dL AST 23 (14-36) U/L ALT 13 (6-35) U/L Alkaline Phosphatase 81 (38-126) U/L Total Protein 7.1 (6.3-8.2) g/dL Albumin 4.1 (3.5-5.1) g/dL Urine Color Red H (Yellow) Urine Appearance Cloudy H (Clear) Urine pH 6.0 (5.0-9.0) Ur Specific [place] 1.030 (1.001-1.035) Urine Protein 2+ H (Negative) mg/dL Urine Glucose (UA) Negative (Negative) mg/dL Urine Ketones Negative (Negative) mg/dL Ur Blood (Man) 3+ H (Negative) Urine Nitrate Negative (Negative) Urine Bilirubin Negative (Negative) Urine Urobilinogen 0.2 (<2.0) mg/dL Leukocyte Esterase Rfl Negative (Negative) PRASHANT/UL Urine RBC 51-100 H (0-2) /hpf Urine WBC 0-5 (0-3) /hpf Ur Squamous Epith Cells Few (Few) /hpf Urine Bacteria 1+ H (None) /hpf Urine Mucus Present /lpf POC Urine HCG, Qual Negative (Negative) Imaging Data Radiologist's impression: ITS Impressions Abdomen/Pelvis CT 02/14/25 08:16 Impression: 5 mm right UVJ stone with mild to moderate right hydroureteronephrosis. Discharge Plan Discharge Clinical Impression: Ureterolithiasis Patient Disposition: Home Condition: Stable Instructions: Ureteral Stones (ED) Patient Language: Lithuanian Prescriptions: New hydrocodone-acetaminophen 5-325 mg tablet 1 tablet PO Q8H PRN (Reason: pain) Qty: 14 0RF tamsulosin [Flomax] 0.4 mg capsule 0.4 mg PO DAILY Qty: 7 0RF No Action ondansetron 4 mg tablet,disintegrating 4 mg PO Q8H PRN (Reason: nausea and vomiting) Qty: 15 0RF Follow-up/Referrals: Stephon Lunsford MD [Physician] - PHYSICIAN NOT ON STAFF,NONSTAFF [Primary Care Provider] - Time of Disposition: 10:34
[2025-02-14 11:10] VITALS: BP 126/68; PULSE 64; RESP 16; O2SAT 98
== END 2025-02-14 11:11 | disposition home or self-care (01) ==
PROVIDERS: Emergency Provider Family Medicine
DX: N20.1 Calculus of ureter (principal); Z98.84 Bariatric surgery status; Z87.442 Personal history of urinary calculi
CPT/HCPCS: 36415; 74176; 80053; 81001; 81025; 85025; 96361; 96374; 96375; 96376; 99284; J1885; J2270; J2405; J2765; J7030